=== PATIENT | male | born 1970 | race Hispanic/Latino ===

== ENCOUNTER 2022-06-26 00:45 | Emergency (ER) | payer OTHER ==
[2022-06-26] MEDS ORDERED: Boostrix 0.5 ML (Tdap) VIAL (>/=7 yrs of age) ONE (01:13)
[2022-06-26] MEDS ORDERED: Ibuprofen 200 MG TAB ONE (03:50)
== END 2022-06-26 03:58 ==
LOC: NAV ERS 00:45
DX: S01.81XA Laceration without foreign body of other part of head, initial encounter (principal); M54.50 Low back pain, unspecified; Y04.0XXA Assault by unarmed brawl or fight, initial encounter; K21.9 Gastro-esophageal reflux disease without esophagitis; Z23 Encounter for immunization; Z79.899 Other long term (current) drug therapy
CPT/HCPCS: 12011; 70450; 70486; 72125; 72131; 90471; 90715